=== PATIENT | male | born 1965 | race Caucasian/White ===

== ENCOUNTER 2021-03-08 01:40 | Emergency (ER) | payer SELFPAY ==
--- NOTE | 2021-03-08 01:45 | ED.EXTPRO ---
HPI - Extremity Problem General Chief complaint: Wound/Laceration Stated complaint: Left knee pain Time Seen by Provider: 03/08/21 01:45 Source: patient Mode of arrival: ambulatory Limitations: no limitations History of Present Illness HPI Narrative: 55-year-old man who is previously well comes in today complaining of pain redness and swelling of his left lower leg and a wound just below his knee. Patient states for the last 2 years he has had a bump on his leg just below his knee which gave him no trouble until he noticed that it got red and swollen. He popped it and pus and blood came out. Patient states that he feels feverish and had chills today but has had no vomiting, difficulty breathing, feeling like he is going to pass out or shortness of breath. He denies prior skin infections. MD Complaint: extremity pain and extremity swelling Onset (ago): day(s) (4-5) Pain Consistency: constant Location: left and lower extremity Quality: aching and sharp Radiation: none Relieving factors: rest Exacerbating factors: range of motion and palpation Associated symptoms: denies other symptoms Related Data Allergies Allergy/AdvReac Type Severity Reaction Status Date / Time No Known Allergies Allergy Verified 03/08/21 01:59 Review of Systems Review of Systems: All systems reviewed & are unremarkable except as noted in HPI and below Constitutional: Constitutional: Reports chills, Reports fever(s) and Denies weakness ENT: Denies nasal congestion and Denies sore throat Cardiovascular: Cardiovascular: Denies chest pain and Denies radiating jaw, neck or arm pain Respiratory: Respiratory: Denies cough and Denies dyspnea Gastrointestinal: Gastrointestinal: Denies nausea and Denies vomiting Integumentary/Breasts: Skin/Breast: Denies pruritus, Reports erythema and Denies rash Neurologic: Denies vertigo, Denies dizziness, Denies syncope, Denies focal weakness and Denies numbness [facility] Surgical History Surgical History (Updated 03/08/21 @ 02:11 by Waldo Carey MD) H/O wrist surgery ORIF after fracture History of mandibular surgery ORIF after fracture Social History Social History (Updated 03/08/21 @ 02:11 by Waldo Carey MD) Smoking status: Current every day smoker Alcohol intake: former Alcohol use details: quit 2 weeks ago Living arrangements: alone Exam Const: General: no acute distress and alert Orientation/consciousness: patient oriented x3 HENMT: Mouth: Yes moist mucous membranes Throat: posterior oropharynx normal Eyes: Conjunctivae: conjunctivae normal Pupils: Equal, round and reactive pupils present EOM: EOMs intact bilaterally Resp: Effort & Inspection: normal respiratory effort and not labored Auscultation: clear to auscultation bilaterally, no rales, no rhonchi and no wheezes Cardio: Rate: regular rate Rhythm: regular rhythm Heart sounds: no murmurs Skin: General skin exam: normal color, no jaundice and no pallor Rashes: no rashes Other: edema, swelling and erythema from the level of the left tibial plateau 2/[address] the ankle anteriorly and 2/3 of the circumference of the calf. There is no calf masses or tenderness. Patient has normal range of motion of the knee without pain and there is no popliteal tenderness or masses. There is a 1 cm diameter wound just lateral to the tibial tuberosity which is draining pus, sebum and blood. Neuro: General: patient oriented x3, moves all extremities, no focal motor deficits and CN's II-XI intact bilaterally Speech: normal speech Gait exam (Neuro): Normal gait present Extrem: General: normal to inspection and no clubbing, cyanosis or edema Psych: Appearance: grossly normal and well kempt Mental Status: mental status grossly normal Attitude: cooperative Thought content: Yes Normal thought content present Course Course Emergency Course: I recommended the patient that he be admitted to the hospital for IV antibiotics but
[2021-03-08 01:59] VITALS: BP 117/56; PULSE 107; RESP 18; TEMP 36.7; O2SAT 97
[2021-03-08 02:36] LABS: Basophils Absolute Auto 0.03 K/mm3 (0.00-0.10); Basophils Percent Auto 0.2 % (0.0-1.0); Eosinophils Absolute Auto 0.05 K/mm3 (0.02-0.50); Eosinophils Percent Auto 0.3 % (1.0-6.0); Hematocrit 36.1 % (40.0-54.0); Hemoglobin 12.5 g/dL (14.0-18.0); Immature Granulocyte Absolute 0.06 K/mm3 (0.00-0.00); Immature Granulocyte Percent A 0.4 % (0.0-0.0); Lymphocytes Absolute Auto 2.28 K/mm3 (1.10-4.50); Lymphocytes Percent Auto 14.7 % (18.0-42.0); Mean Corpuscular HGB Conc 34.6 g/dL (32.0-36.0); Mean Corpuscular Hemoglobin 33.8 pg (27.0-31.0); Mean Corpuscular Volume 97.6 fL (78.0-102.0); Mean Platelet Volume 9.5 fl (8.7-11.0); Monocytes Absolute Auto 1.57 K/mm3 (0.10-0.90); Monocytes Percent Auto 10.1 % (2.0-11.0); Neutrophils Absolute Auto 11.5 K/mm3 (1.7-7.2); Neutrophils Percent Auto 74.3 % (50.0-70.0); Platelet Count Result 268 K/mm3 (150-420); White Blood Count 15.5 K/mm3 (4.8-10.8)
[2021-03-08 02:55] LABS: Lactic Acid Reflex 1.3 mmol/L (0.4-2.0)
[2021-03-08 02:58] LABS: Alanine Aminotransferase 51 U/L (16-63); Albumin Level 2.9 g/dL (3.4-5.0); Alkaline Phosphatase 97 U/L (46-116); Anion Gap 12 mmol/L (8-16); Aspartate Amino Transferase 56 U/L (15-37); Bilirubin,Total 0.8 mg/dL (0.00-1.00); Blood Urea Nitrogen 6 mg/dL (7-18); CRP 14.6 mg/dL (0.0-0.9); Calcium 7.5 mg/dL (8.5-10.1); Carbon Dioxide 23 mmol/L (21-32); Chloride 102 mmol/L (98-108); Estimated CRCL calculation 59 ml/min; Estimated Glomerular Filt Rate > 60; Glucose 133 mg/dL (70-99); Osmolality Calculated 283 mOsm/kg (285-295); Potassium 3.4 mmol/L (3.5-5.1); Sodium 137 mmol/L (136-145); Total Protein 6.9 g/dL (6.4-8.2)
[2021-03-08 03:39] LABS: Erythrocyte Sedimentation Rate 46 mm/hr (0-20)
[2021-03-08 03:41] VITALS: BP 102/67; PULSE 95; RESP 16; O2SAT 98
== END 2021-03-08 03:43 | disposition home or self-care (01) ==
PROVIDERS: Emergency Provider Emergency Medicine
DX: L03.116 Cellulitis of left lower limb (principal)
CPT/HCPCS: 36415; 80053; 83605; 85025; 85652; 86140; 87040; 87070; 87147; 87186; 87205; 99283; A9270

== ENCOUNTER 2021-03-10 02:01 | Observation (INO) | payer SELFPAY ==
[2021-03-10] VITALS (7 sets, daily range): BP systolic 112–126; BP diastolic 41–85; PULSE 66–83; RESP 14–20; TEMP 36.3–37.3; O2SAT 95–100; BMI 27.9
--- NOTE | ~2021-03-10 | US_ITS ---
EXAMINATION: US venous doppler [facility] DATE: 03/10/2021 07:57 INDICATION: Left lower limb pain TECHNIQUE: [place] scale images without and with compression and Doppler images of the left lower extrem ity veins were obtained. COMPARISON: None FINDINGS: The left common femoral vein, profunda femoral vein, femoral vein, popliteal vein, peroneal trunk, posterior tibial veins, and greater saphenous vein are patent. IMPRESSION: 1. Patent left lower extremity veins. No evidence of deep venous thrombosis. Reviewed, dictated and finalized at location A.
--- NOTE | 2021-03-10 02:36 | ED.GENADULT ---
HPI - General Adult General Source: patient Mode of arrival: ambulatory Limitations: no limitations History of Present Illness HPI narrative: Johnathon is a 55M with a PMH of tobacco abuse (quit 1 month ago) that presented to the ED with worsening pain, swelling and redness in his left lower extremity. He was seen two nights ago but left AMA. Despite taking bactrim symptoms worsened. Today he reports feeling weak all day with body aches fevers and chills. His leg is swelling, getting more painful, and the redness is spreading. Related Data Allergies Allergy/AdvReac Type Severity Reaction Status Date / Time No Known Allergies Allergy Verified 03/08/21 01:59 Review of Systems Constitutional: Constitutional: Reports chills, Reports fatigue, Reports fever(s) and Reports weakness Eyes: Eyes: Reports no additional eye complaints ENT: Reports system reviewed and no additional complaints, except as documented Cardiovascular: Cardiovascular: Reports no additional cardiovascular complaints Respiratory: Respiratory: Reports no additional respiratory complaints Gastrointestinal: Gastrointestinal: Reports no additional gastrointestinal complaints Genitourinary: Genitourinary: Reports no additional male genitourinary complaints Musculoskeletal: Musculoskeletal: Reports myalgias Integumentary/Breasts: Skin/Breast: Reports as per HPI Neurologic: Reports system reviewed and no additional complaints, except as documented Psychiatric: Psychiatric: Reports no additional psychiatric complaints Endocrine: Endocrine: Reports no additional endocrine complaints Hematologic/Lymphatic: Hematologic/Lymphatic: Reports no additional hematologic/lymphatic complaints Allergic/Immunologic: Allergic/Immunologic: Reports no additional allergic/immunologic complaints [facility] Surgical History Surgical History H/O wrist surgery ORIF after fracture History of mandibular surgery ORIF after fracture Social History Social History Smoking status: Former smoker Tobacco type: cigars Second hand tobacco smoke exposure: Yes Smoking end date: 02/17/21 Alcohol intake: former Alcohol use details: quit 2 weeks ago Substance use: never Spiritual care concerns: No Exam Const: General: no acute distress and alert Orientation/consciousness: patient oriented x3 Limitations: No altered mental status HENMT: Head: normal to inspection Other: normocephalic, atrauamtic Eyes: Conjunctivae: conjunctivae normal Pupils: Equal, round and reactive pupils present Neck: Neck: normal visual inspection Chest: Chest palpation & inspection: normal inspection of the chest Resp: Effort & Inspection: normal respiratory effort Auscultation: clear to auscultation bilaterally Cardio: Rate: regular rate Rhythm: regular rhythm GI: Inspection: non-distended GI Palp: Yes Soft to palpation, No Tenderness to palpation present (GI) and No Guarding due to palpation present (GI) : General: Yes no CVA tenderness Skin: Other: LLE calf is very swollen with erythema passing the previous markings. It is very TTP. Neuro: General: patient oriented x3, moves all extremities, no meningeal signs and CN's II-XI intact bilaterally Extrem: General: normal to inspection Psych: Appearance: grossly normal Mental Status: mental status grossly normal Affect: normal affect Attitude: cooperative Thought content: Yes Normal thought content present Course Course Emergency Course: Ordered labs, UA, and blood cultures. Started vancomycin. He was given a dose of lovenox for presumed DVT. Ordered US to be done later in the day. He was admitted for further workup for DVT and IV antibiotics. Vital Signs Vital signs: Vital Signs Temperature 97.3 F L 03/10/21 02:25 Pulse Rate 73 03/10/21 02:25 Respiratory Rate 20 03/10/21 02:25 Blood Pressure
[2021-03-10 03:11] LABS: Basophils Absolute Auto 0.02 K/mm3 (0.00-0.10); Basophils Percent Auto 0.2 % (0.0-1.0); Eosinophils Percent Auto 3.5 % (1.0-6.0); Hematocrit 33.7 % (40.0-54.0); Hemoglobin 11.4 g/dL (14.0-18.0); Immature Granulocyte Absolute 0.03 K/mm3 (0.00-0.00); Immature Granulocyte Percent A 0.3 % (0.0-0.0); Lymphocytes Absolute Auto 1.81 K/mm3 (1.10-4.50); Mean Corpuscular HGB Conc 33.8 g/dL (32.0-36.0); Mean Corpuscular Hemoglobin 33.4 pg (27.0-31.0); Mean Corpuscular Volume 98.8 fL (78.0-102.0); Mean Platelet Volume 9.8 fl (8.7-11.0); Monocytes Absolute Auto 0.67 K/mm3 (0.10-0.90); Monocytes Percent Auto 7.8 % (2.0-11.0); Neutrophils Absolute Auto 5.8 K/mm3 (1.7-7.2); Neutrophils Percent Auto 67.2 % (50.0-70.0); Platelet Count Result 282 K/mm3 (150-420); Red Blood Count 3.41 M/mm3 (4.70-6.10); Red Cell Distribution Width 12.3 % (11.6-14.4); White Blood Count 8.6 K/mm3 (4.8-10.8)
[2021-03-10 03:14] LABS: Add Urine Microscopic? NO; Appearance Urine Clear (Clear); Bilirubin Urine Negative (Negative); Blood Urine Negative (Negative); Color Urine Light Yellow (Yellow); Glucose Urine UA Negative (Negative); Ketones Urine Negative (Negative); Leukocyte Esterase Ur Negative (Negative); Nitrate Urine Negative (Negative); Protein Urine Negative (Negative); pH Urine 6.5 (5.0-8.0)
[2021-03-10] MEDS: SODIUM CHLORIDE 0.9% IV 1,000 ML 999 ML IV CONT (03:20)
[2021-03-10 03:27] LABS: Alanine Aminotransferase 54 U/L (16-63); Albumin Level 2.7 g/dL (3.4-5.0); Alkaline Phosphatase 106 U/L (46-116); Anion Gap 12 mmol/L (8-16); Aspartate Amino Transferase 44 U/L (15-37); Bilirubin,Total 0.2 mg/dL (0.00-1.00); Blood Urea Nitrogen 8 mg/dL (7-18); Calcium 7.8 mg/dL (8.5-10.1); Carbon Dioxide 26 mmol/L (21-32); Chloride 102 mmol/L (98-108); Estimated CRCL calculation 64 ml/min; Estimated Glomerular Filt Rate > 60; Glucose 111 mg/dL (70-99); Osmolality Calculated 289 mOsm/kg (285-295); Potassium 3.3 mmol/L (3.5-5.1); Sodium 140 mmol/L (136-145); Total Protein 7.3 g/dL (6.4-8.2)
[2021-03-10] MEDS: ENOXAPARIN 1 MG/KG 80 MG SUB-Q (03:27)
[2021-03-10 03:28] LABS: CRP > 10.6 mg/dL (0.0-0.9)
--- NOTE | 2021-03-10 05:30 | ADMGEN ---
This patient, Johnathon Zhang, was admitted to 2nd Floor Room 205-1. Patient/family oriented to hospital policies and general routines including ID bracelet, bed and alarms, visiting hours, pain management, procedures, bathroom and other care routines, personal items, smoking policy, room service/diet, and visiting hours. Information on how to activate the Rapid Response Team has been discussed. Patient/Family are encouraged to report perceived risks to care and to ask questions if they do not understand what they are told or what they should do.
[2021-03-10] MEDS: POTASSIUM CHLORIDE 20 MEQ TABLET 40 MEQ PO (09:00)
[2021-03-10 09:34] LABS: Estimated CRCL calculation 71 ml/min; Estimated Glomerular Filt Rate > 60
[2021-03-10] MEDS: MUPIROCIN 2% OINT 22 GM TUBE 1 APPLIC TOPICAL ×2 (10:00→18:25)
--- NOTE | 2021-03-10 12:30 | PM.IMHP ---
H&P: HPI History of Present Illness Date/Time: 03/10/21 12:30 Johnathon Zhang is a 55 year old male who comes to the hospital and admitted under observation for cellulitis of the left lower extremity. 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 A few days ago he noticed the small area below his Left knee that was swollen and red. He picked at the site until pus came out of the site. His lower leg then started to swell and turn red which caused him to come to the ER. Pt states he has never been sick before. He also admits that he has only seen a provider once in several years. Pt was given Bactrim a couple days ago when he came to the ER for this issue. Pt denies any other issues and states his fevers resolved once he came to the hospital room. <WAGNER Tatum - Last Filed: 03/10/21 12:56> Chief Complaint: Swelling and redness to left leg <WAGNER Tatum - Last Filed: 03/10/21 12:56> Review of Systems Review of Systems: All systems reviewed & are unremarkable except as noted in HPI and below <WAGNER Tatum - Last Filed: 03/10/21 12:56> [facility] Surgical History Surgical History: Surgical History H/O wrist surgery ORIF after fracture History of mandibular surgery ORIF after fracture <WAGNER Tatum - Last Filed: 03/10/21 12:56> Social History Social History: Social History (Updated 03/10/21 @ 12:43 by WAGNER Tatum) Smoking status: Former smoker Tobacco type: cigars Smokeless tobacco user: chewing tobacco Second hand tobacco smoke exposure: Yes Smoking end date: 02/17/21 Alcohol intake: former Alcohol use details: quit 2 weeks ago Substance use: never Spiritual care concerns: No <WAGNER Tatum - Last Filed: 03/10/21 12:56> Meds Home Medications and Allergies Home medications: Home Medications Medication Instructions Recorded Confirmed Type sulfamethoxazole-trimethoprim 1 tablet PO Q12H #20 tablet 03/08/21 03/10/21 Rx <WAGNER Tatum - Last Filed: 03/10/21 12:56> Allergies/Adverse reactions: Allergies Allergy/AdvReac Type Severity Reaction Status Date / Time No Known Allergies Allergy Verified 03/08/21 01:59 <WAGNER Tatum - Last Filed: 03/10/21 12:56> Vital Signs Vital Signs - 24 hr 03/10/21 02:25 03/10/21 04:00 03/10/21 04:33 Temperature 97.3 F L 99.2 F 97.6 F Pulse Rate 73 66 78 Respiratory Rate 20 14 18 Blood Pressure 120/85 112/72 125/80 Pulse Oximetry 100 99 100 03/10/21 07:55 Temperature 98.5 F Pulse Rate 72 Respiratory Rate 18 Blood Pressure 121/49 L Pulse Oximetry 98 <WAGNER Tatum - Last Filed: 03/10/21 12:56> Exam Const: General: cooperative, healthy appearing, comfortable, no acute distress, well developed, alert, awake and Physically active <WAGNER Tatum - Last Filed: 03/10/21 12:56> Nutritional Appearance: average body habitus <WAGNER Tatum - Last Filed: 03/10/21 12:56> HENMT: Head: normal to inspection, normocephalic and atraumatic <WAGNER Tatum - Last Filed: 03/10/21 12:56> Ears: hearing grossly normal bilaterally <WAGNER Tatum - Last Filed: 03/10/21 12:56> Face and sinus: normal facial exam <WAGNER Tatum - Last Filed: 03/10/21 12:56> Mouth: Yes other (possible leukoplakia lower jaw front left corner gum line) <WAGNER Tatum - Last Filed: 03/10/21 12:56> Neck: Neck: normal visual inspection, no lymphadenopathy and no JVD <WAGNER Tatum - Last Filed: 03/10/21 12:56> Resp: Effort & Inspection: normal respiratory effort <WAGNER Tatum - Last Filed: 03/10/21 12:56> Auscultation: clear to auscultation bilaterally <WAGNER Tatum - Last Filed: 03/10/21 12:56> Cardio: Rate: regular rate <WAGNER Tatum - Last Filed:
[2021-03-11] VITALS: BP 101/50; PULSE 70; RESP 18; TEMP 35.6; O2SAT 93
[2021-03-11 04:00] VITALS: BP 118/73; PULSE 64; RESP 18; TEMP 35.4; O2SAT 94
[2021-03-11 07:55] VITALS: BP 113/77; PULSE 72; RESP 18; TEMP 37.1; O2SAT 97
[2021-03-11 08:00] VITALS: O2SAT 97
[2021-03-11] MEDS: ENOXAPARIN 40 MG/0.4 ML SYRINGE SUB-Q (09:11)
[2021-03-11] MEDS: MUPIROCIN 2% OINT 22 GM TUBE 1 APPLIC TOPICAL (09:11)
[2021-03-11] MEDS: HYDROcodone/acetaminophen (*CRX) 5-325 MG TABLET 1 TAB PO (10:29)
--- NOTE | 2021-03-11 11:10 | PM.DS ---
DS: Admitting Diagnosis Discharge Date 03/11/2021 <WAGNER Tatum - Last Filed: 03/11/21 11:28> Admitting Diagnosis Cellulitis <WAGNER Tatum - Last Filed: 03/11/21 11:28> DS: Discharge Diagnosis Discharge Diagnosis (1) Cellulitis: Code(s): L03.90 - Cellulitis, unspecified <WAGNER Tatum - Last Filed: 03/11/21 11:28> Status: Acute <WAGNER Tatum - Last Filed: 03/11/21 11:28> Assessment and Plan: Vancomycin and Zosyn with renal dosing and pharmacy to follow Vancomycin, Pt tolerating well, Cr 0.94, eCrCl 71, eGFR > 60, small abscess at upper tibia size of a enrike, erythema from just below the knee to mid lower leg as noted in PE, US performed and No DVT identified 03/11/2021 Culture and Sensitivity returned with MRSA that is sensitive to Clindamycin with a ADRIAN of <=0.25, will DC Pt with this PO Ab for a 10 day course and have him continue Bactroban topical. Pt will need to follow up with his provider once established with one. 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 03/11/2021 will give Pt tobacco cessation material <WAGNER Tatum - Last Filed: 03/11/21 11:28> DS: Summary Hospital Course Hospital Course: Cellulitis improved, C&S resulted and can send Pt home with PO Ab. <WAGNER Tatum - Last Filed: 03/11/21 11:28> Time Spent with Patient Time attestation: Total time spent providing and/or coordinating discharge services: < 30 minutes <Ambrose GasparTESSAClintonC - Last Filed: 03/11/21 11:28> Exam Const: General: cooperative, healthy appearing, comfortable, no acute distress, alert, awake and Physically active <Ambrose Gaspar FILER METAL PATTERNSClintonC - Last Filed: 03/11/21 11:28> Nutritional Appearance: average body habitus <Ambrose Gaspar FILER METAL PATTERNSClintonC - Last Filed: 03/11/21 11:28> Resp: Effort & Inspection: normal respiratory effort <Ambrose Gaspar FILER MET[employer] PATTERNSClintonC - Last Filed: 03/11/21 11:28> Auscultation: clear to auscultation bilaterally <Ambrose Gaspar [employer] PATTERNSClintonC - Last Filed: 03/11/21 11:28> Cardio: Rate: regular rate <Ambrose Gaspar FILER METAL PATTERNSClinton - Last Filed: 03/11/21 11:28> Heart sounds: S1 normal heart sound present and S2 normal heart sound present <Ambrose Gaspar [employer] PATTERNSClintonC - Last Filed: 03/11/21 11:28> GI: GI Palp: Yes Soft to palpation and No Tenderness to palpation present (GI) <Ambrose Gaspar [employer] PATTER[employer]ClintonC - Last Filed: 03/11/21 11:28> Auscultation: normal bowel sounds <Ambrose Gaspar [employer] PATTER[employer]Cl[employer]C - Last Filed: 03/11/21 11:28> Skin: General skin exam: normal color and dry skin <Ambrose GasparTESSAClintonC - Last Filed: 03/11/21 11:28> Neuro: General: oriented to person, oriented to place, oriented to time and CN's II-XI intact bilaterally (grossly intact) <Ambrose GasparTESSA-C - Last Filed: 03/11/21 11:28> Cognition (Neuro): normal cognition <Ambrose GasparTESSAClintonC - Last Filed: 03/11/21 11:28> Speech: normal speech <Ambrose DuncanTESSA villarrealClinton - Last Filed: 03/11/21 11:28> Extrem: Left lower extremity: normal capillary refill and lower leg Details: erythema (improved, smaller), tenderness (improved) and localized swelling (nearly resolved) <WAGNER Tatum - Last Filed: 03/11/21 11:28> Psych: Appearance: grossly normal <WAGNER Tatum - Last Filed: 03/11/21 11:28> Mental Status: mental status grossly normal <WAGNER Tatum - Last Filed: 03/11/21 11:28> Speech and movement: Normal speech and movement present <WAGNER Tatum - Last Filed: 03/11/21 11:28> Affect: normal affect <Rich
--- NOTE | 2021-03-11 13:15 | PC.NURSE ---
All discharge instructions and education reviewed with patient. Patient states understanding. IV site removed, tip intact, dressing applied to site. All patient belongings gathered together and sent home with patient. Home medications returned. Instructions given on dressing change, patient states understanding. Patient left ambulatory, accompanied by this nurse to front door. Patient left via private vehicle. Denies any questions at discharge.
--- NOTE | 2021-03-16 13:31 | PC.NURSE ---
Pt states he received and understood his discharge instructions. Pt has no other comments.
== END 2021-03-11 13:15 | disposition home or self-care (01) ==
LOC: CHSED 02:02 → CHS2ND 07:10
PROVIDERS: Admitting Provider Family Medicine; Emergency Provider Family Medicine; Visit Provider Family Medicine
DX: L03.116 Cellulitis of left lower limb (principal); K13.21 Leukoplakia of oral mucosa, including tongue; Z87.891 Personal history of nicotine dependence
CPT/HCPCS: 36415; 80053; 81003; 82565; 85025; 86140; 87040; 87070; 87147; 87186; 87205; 93971; 96361; 96365; 96366; 96367; 96372; 99285; A9270; G0378; G0379; J1650; J2543; J3370; J7030